=== PATIENT | female | born 1945 | race Caucasian/White ===

== ENCOUNTER 2023-08-25 11:20 | Day surgery (SDC) | payer OTHER ==
[2023-08-24 10:22] VITALS: BMI 21.9
[2023-08-25 14:24] VITALS: TEMP 98
[2023-08-25 14:25] VITALS: RESP 18
[2023-08-25 14:26] VITALS: BP 145/70; PULSE 66
== END 2023-08-25 14:05 | disposition home or self-care (01) ==
LOC: FASU-ENDO 11:20
PROVIDERS: ATTEND Internal Medicine Gastroenterology
PROC: 0DJD8ZZ Inspection of Lower Intestinal Tract, Via Natural or Artificial Opening Endoscopic (ICD-10-PCS; principal; 2023-08-25 12:59)
DX: Z12.11 Encounter for screening for malignant neoplasm of colon (principal); Z86.010 Personal history of colon polyps; K64.1 Second degree hemorrhoids